=== PATIENT | male | born 1955 | race Caucasian/White ===

== ENCOUNTER → 2018-11-09 | Outpatient (REF) | payer OTHER, MEDICAID ==
[2018-11-09 18:38] LABS: BASO % 0.4 % (0.0-1.0); EOS # 0.2 10^3/uL (0.0-0.50); EOS % 2.2 % (0.0-3.0); HEMATOCRIT 45.4 % (42.0-52.0); HEMOGLOBIN 14.9 g/dl (13.5-17.5); LYMPH # 1.4 10^3/uL (1.5-4.5); LYMPH % 16.7 % (24.0-44.0); MEAN CORPUSCULAR HGB CONC 32.8 g/dl (32.0-36.5); MEAN CORPUSCULAR VOLUME 91.3 fl (80.0-96.0); MONO # 0.8 10^3/uL (0.0-0.8); MONO % 9.3 % (0.0-5.0); NEUTROPHILS # 5.9 10^3/uL (1.8-7.7); NEUTROPHILS % 71.2 % (36.0-66.0); PLATELET COUNT, AUTOMATED 229 10^3/uL (150-450); RED BLOOD COUNT 4.97 10^6/uL (4.30-6.10); WHITE BLOOD COUNT 8.3 10^3/uL (4.0-10.0)
[2018-11-09 18:42] LABS: ALBUMIN 3.5 GM/DL (3.2-5.2); ALT/SGPT 19 U/L (12-78); BILIRUBIN,TOTAL 0.4 MG/DL (0.2-1.0); BLOOD UREA NITROGEN 14 MG/DL (7-18); CALCIUM LEVEL 8.5 MG/DL (8.8-10.2); CARBON DIOXIDE LEVEL 27 MEQ/L (21-32); CHLORIDE LEVEL 107 MEQ/L (98-107); CHOLESTEROL LEVEL 138 MG/DL (<200); CREATININE FOR GFR 0.81 MG/DL (0.70-1.30); GLOMERULAR FILTRATION RATE > 60.0 (>49); GLUCOSE, FASTING 98 MG/DL (70-100); HDL CHOLESTEROL 40 MG/DL (>40); LDL CHOLESTEROL 78 MG/DL (<100); NON-HDL-C 98 MG/DL; POTASSIUM SERUM 3.8 MEQ/L (3.5-5.1); SODIUM LEVEL 141 MEQ/L (136-145); TOTAL PROTEIN 6.6 GM/DL (6.4-8.2); TRIGLYCERIDES LEVEL 101 MG/DL (<150)
== END ==
LOC: M LAB REF 16:58
PROVIDERS: ATTEND Family Medicine Addiction Medicine
DX: R03.0 Elevated blood-pressure reading, without diagnosis of hypertension (principal); M54.5 Low back pain; J43.8 Other emphysema; M25.512 Pain in left shoulder

== ENCOUNTER → 2019-02-16 | Outpatient (CLI) | payer OTHER ==
--- NOTE | 2019-02-16 14:10 | REP ---
REASON: Tobacco abuse. COMPARISON: None. There is evidence of biapical pleural parenchymal scarring. There is a subtle 6 mm sized nodule in the right middle lobe. There is an incidental calcified granuloma in the right middle lobe. Grossly the mediastinum and pulmonary frank are within normal limits. Grossly the imaged upper abdomen and imaged osseous structures are within normal limits. As per the protocol only lung window images were sent to the read station for interpretation. IMPRESSION: 1. 6 mm sized nodule in the right middle lobe. According to the revised Fleischner's Society criteria this represents a category III lesion for which 6 month followup examination is recommended. 2. There is evidence of biapical pleural parenchymal scarring. Electronically Signed by Dre Bell DO 02/16/2019 02:22 P
== END ==
LOC: M RAD 11:15
PROVIDERS: ATTEND Nurse Practitioner Family
DX: Z12.2 Encounter for screening for malignant neoplasm of respiratory organs (principal); Z72.0 Tobacco use; R91.1 Solitary pulmonary nodule

== ENCOUNTER → 2019-07-26 | Outpatient (CLI) | payer OTHER ==
--- NOTE | 2019-07-26 14:09 | PFTRPT ---
Site: [facility], [address] [place] [address], [id number] ID: [id number] Name: GRIFFIN SHARP Visit Date: 07/26/2019 Second ID: [id number] Referring Doctor: Fercho Cristina MD Reviewing Doctor: Fercho Cristina MD Heart Surgeon: Ubaldo BOWEN, LIZZETH Age: 64 : 1955 Sex: Male Race: Height: 73.00 Inches Weight: 152.00 Lbs BSA: 1.91 Order IDs: [id number] Requested Test(s): <RESP-PFT.PFT B/A> Diagnosis: R91.1 test meet the ATS standards for acceptability and repeatability. Pt was given four puffs of albuterol for postbronchodilator. Review Status: Not Reviewed Pre-Bronch Post-Bronch Pred Actual %Pred Actual %Chng SPIROMETRY FVC (L) 5.21 4.17 80 4.23 1 FEV1 (L) 3.92 3.23 82 3.40 5 FEV1/FVC (%) 75 77 103 80 3 FEF 25% (L/sec) 6.95 6.69 96 7.13 6 FEF 50% (L/sec) 3.76 4.41 117 5.31 20 FEF 75% (L/sec) 1.29 0.92 71 1.23 33 FEF 25-75% (L/sec) 3.15 2.90 91 3.64 25 FEF Max (L/sec) 9.74 7.48 76 8.51 13 FIVC (L) 3.17 3.37 6 FIF 50% (L/sec) 4.66 5.90 126 3.27 -44 FIF Max (L/sec) 5.95 3.46 -41 MVV (L/min) 148 93 62 Expiratory Time (sec) 10.68 7.68 -28 Back Extrap Vol (L) 0.13 0.16 22 Time To FEFmax (sec) 0.115 0.111 -3 LUNG VOLUMES SVC (L) 5.16 4.32 83 IC (L) 3.59 2.98 82 ERV (L) 1.57 1.34 85 TGV (L) 4.02 3.36 83 RV (Pleth) (L) 2.45 2.02 82 TLC (Pleth) (L) 7.61 6.34 83 RV/TLC (Pleth) (%) 33 32 96 DIFFUSION DLCOunc (ml/min/mmHg) 29.17 21.86 74 DLCOcor (ml/min/mmHg) 29.17 21.80 74 DL/VA (ml/min/mmHg/L) 3.83 3.73 97 VA (L) 7.61 5.85 76 BHT (sec) 10.47 IVC (L) 4.11 TLC (SB) (L) 6.00 AIRWAYS RESISTANCE Raw (cmH2O/L/s) 1.45 0.91 62 Gaw (L/s/cmH2O) 1.03 1.10 106 sRaw (cmH2O*s) 4.76 3.43 72 sGaw (1/cmH2O*s) 0.20 0.29 145 BLOOD GASES Hgb (gm/dL) 14.7
== END ==
LOC: M CARPUL 13:34
PROVIDERS: ATTEND Internal Medicine Pulmonary Disease
DX: R91.1 Solitary pulmonary nodule (principal)

== ENCOUNTER → 2019-09-14 | Outpatient (CLI) | payer OTHER ==
--- NOTE | 2019-09-14 14:41 | REP ---
REASON: Followup pulmonary nodule. COMPARISON: 02/16/2019, the only prior which showed a 6 mm size nodule in the right middle lobe. Limited evaluation of the mediastinum and pulmonary frank show no evidence of gross mass or adenopathy. There are no pleural or pericardial effusions. Limited evaluation of the imaged upper abdomen shows a near round 2.9 cm sized structure arising from the superior pole of the left kidney and having water density Hounsfield unit readings consistent with a cyst. In the interpolar region f the left kidney anteriorly, there is a partially imaged, at least 4.1 cm sized round appearing lesion. The images portion of which also has near water density Hounsfield unit readings. Bone window technique throughout the exam shows the osseous structures within normal limits. There is an incidental vertebral body hemangioma seen involving T9. Evaluation of the lung alonso shows a 6 mm size nodule seen previously in the right middle lobe to have gotten smaller. Note is again made of stable appearing biapical pleuroparenchymal scarring. There is dependent bilateral subsegmental atelectasis seen in the lung bases. There are no new abnormal nodules, masses, or opacities. IMPRESSION: 1. Less conspicuous nodule seen in the right middle lobe as described above. 2. Other findings as described above. According to the revised Fleischner's Society criteria, yearly CT screening is recommended provided the patient's risk factors remain high. 3. Probable simple renal cysts on the left as described above. Consider further evaluation with ultrasound. 4. Other findings as described above. Electronically Signed by Dre Bell DO 09/14/2019 02:53 P
== END ==
LOC: M RAD 13:10
PROVIDERS: ATTEND Physician Assistant
DX: R63.4 Abnormal weight loss (principal); R91.1 Solitary pulmonary nodule; Z72.0 Tobacco use; J43.8 Other emphysema

== ENCOUNTER → 2019-10-12 | Outpatient (REF) | payer OTHER, MEDICAID ==
[2019-10-12 13:26] LABS: BASO # 0.1 10^3/uL (0.0-0.2); BASO % 0.9 % (0.0-1.0); EOS # 0.2 10^3/uL (0.0-0.5); EOS % 2.6 % (0.0-3.0); HEMATOCRIT 47.6 % (42.0-52.0); HEMOGLOBIN 15.5 g/dl (13.5-17.5); LYMPH # 2.2 10^3/uL (1.5-5.0); LYMPH % 34.2 % (24.0-44.0); MEAN CORPUSCULAR HEMOGLOBIN 29.7 pg (27.0-33.0); MEAN CORPUSCULAR HGB CONC 32.6 g/dl (32.0-36.5); MEAN CORPUSCULAR VOLUME 91.2 fl (80.0-96.0); MONO # 0.7 10^3/uL (0.0-0.8); MONO % 11.4 % (0.0-5.0); NEUTROPHILS # 3.3 10^3/uL (1.5-8.5); NEUTROPHILS % 50.4 % (36.0-66.0); PLATELET COUNT, AUTOMATED 292 10^3/uL (150-450); RED BLOOD COUNT 5.22 10^6/uL (4.30-6.10); WHITE BLOOD COUNT 6.5 10^3/uL (4.0-10.0)
[2019-10-12 13:36] LABS: ALBUMIN 3.8 GM/DL (3.2-5.2); ALT/SGPT 19 U/L (12-78); BILIRUBIN,TOTAL 0.4 MG/DL (0.2-1.0); BLOOD UREA NITROGEN 14 MG/DL (7-18); CALCIUM LEVEL 9.1 MG/DL (8.8-10.2); CARBON DIOXIDE LEVEL 27 MEQ/L (21-32); CHLORIDE LEVEL 103 MEQ/L (98-107); CHOLESTEROL LEVEL 176 MG/DL (<200); CHOLESTEROL RISK RATIO 5.176 (<5); CREATININE FOR GFR 0.86 MG/DL (0.70-1.30); GLOMERULAR FILTRATION RATE > 60.0 (>49); GLUCOSE, FASTING 86 MG/DL (70-100); HDL CHOLESTEROL 34 MG/DL (>40); LDL CHOLESTEROL 114 MG/DL (<100); NON-HDL-C 142 MG/DL; POTASSIUM SERUM 3.9 MEQ/L (3.5-5.1); SODIUM LEVEL 137 MEQ/L (136-145); TOTAL PROTEIN 6.7 GM/DL (6.4-8.2); TRIGLYCERIDES LEVEL 142 MG/DL (<150)
[2019-10-12 13:59] LABS: HEMOGLOBIN A1c 5.8 %
== END ==
LOC: M LAB REF 12:41
PROVIDERS: ATTEND Family Medicine
DX: Z00.01 Encounter for general adult medical examination with abnormal findings (principal)

== ENCOUNTER → 2019-10-19 | Outpatient (CLI) | payer OTHER ==
--- NOTE | 2019-10-19 15:51 | REP ---
RENAL ULTRASOUND: Real-time sonographic evaluation of kidneys performed. Kidneys are normal in size and echotexture, right kidney measuring 10.7 x 6.4 x 4.3 cm and left kidney 10.6 x 7.0 x 6.4 cm. There is no hydronephrosis bilaterally. Visualization of the left kidney is somewhat limited due to bowel gas and body habitus. There are two cysts in the upper pole of the right kidney measuring 1.0 cm and 1.1 cm in diameter. There is a cyst in the upper pole of the left kidney measuring 4.4 x 2.7 x 3.1 cm. There is a cyst in the lower pole of the left kidney 3.8 x 4.0 x 3.7 cm, which contains a thin septation. IMPRESSION: Bilateral renal cysts. Electronically Signed by Brandan Deal MD 10/19/2019 03:55 P
--- NOTE | 2019-10-19 15:54 | REP ---
URINARY BLADDER ULTRASOUND: Real-time sonographic evaluation of urinary bladder performed. Bladder measures 4.5 x 6.5 x 2.1 cm for a total volume of 40 mL. Due to suboptimal distention, evaluation of bladder wall is limited. Ureteral jets are not visualized with Doppler color evaluation. Prostate measures 3.4 x 2.5 x 3.7 cm, total volume 16 mL. There is no postvoid residual. IMPRESSION: Limited evaluation of bladder, which is suboptimally distended with a volume of 40 mL. No gross abnormality. No postvoid residual after voiding. Electronically Signed by Brandan Deal MD 10/19/2019 03:55 P
== END ==
LOC: M RAD 10:28
PROVIDERS: ATTEND Physician Assistant
DX: N28.1 Cyst of kidney, acquired (principal)

== ENCOUNTER → 2019-10-31 | Outpatient (CLI) | payer OTHER ==
[~2019-10-31] MED LIST: E-Z-GAS II EFFERVESCENT PACKET (SODIUM BICARB./CITRIC ACID/SIMETHICONE) As Ordered ONE; E-Z-HD 98% w/w 340GM SUSP BTL As Ordered ONE; E-Z-PAQUE 96% w/w SUSP 176GM BTL As Ordered ONE
--- NOTE | 2019-10-31 16:14 | REP ---
Esophagram The procedure was performed under the direct supervision of Dr. Deal. The images were reviewed with Dr. Deal. A single view PA chest x-ray is submitted as a heading pinner film. There is biapical pleural parenchymal scarring as seen on a previous CT scan dated 09/14/2019. Lungs are otherwise clear. The heart size within normal limits. The superior mediastinal structures are midline. Liquid barium and gas producing granules were given in the erect position as well as liquid barium in the prone oblique positions in order to perform a double contrast esophagram examination. The oral and pharyngeal stages of deglutition are unremarkable. Esophageal transport is prompt and efficient and there is no esophagitis, stricture, mucosal ring or hiatal hernia. Gastroesophageal reflux is not demonstrated on this examination. Impression: Double contrast esophagram examination within normal limits. 0.7 minutes of fluoro time was utilized for this procedure. Electronically Signed by TANIYA Camacho 10/31/2019 03:49 P Electronically Signed by Brandan Deal MD 10/31/2019 04:04 P
== END ==
LOC: M RAD 09:54
PROVIDERS: ATTEND Physician Assistant
DX: R13.12 Dysphagia, oropharyngeal phase (principal); Z72.0 Tobacco use

== ENCOUNTER → 2020-04-09 | Outpatient (REF) | payer OTHER, MEDICAID ==
[2020-04-09 17:21] LABS: BASO # 0.1 10^3/uL (0.0-0.2); BASO % 0.9 % (0.0-1.0); EOS # 0.2 10^3/uL (0.0-0.5); EOS % 3.9 % (0.0-3.0); HEMATOCRIT 47.5 % (42.0-52.0); LYMPH # 1.5 10^3/uL (1.5-5.0); LYMPH % 25.7 % (24.0-44.0); MEAN CORPUSCULAR HGB CONC 31.6 g/dl (32.0-36.5); MEAN CORPUSCULAR VOLUME 91.9 fl (80.0-96.0); MONO # 0.6 10^3/uL (0.0-0.8); MONO % 9.8 % (0.0-5.0); NEUTROPHILS # 3.5 10^3/uL (1.5-8.5); NEUTROPHILS % 59.5 % (36.0-66.0); PLATELET COUNT, AUTOMATED 255 10^3/uL (150-450); RED BLOOD COUNT 5.17 10^6/uL (4.30-6.10); WHITE BLOOD COUNT 5.8 10^3/uL (4.0-10.0)
[2020-04-09 17:23] LABS: BLOOD UREA NITROGEN 18 MG/DL (7-18); CALCIUM LEVEL 9.4 MG/DL (8.8-10.2); CARBON DIOXIDE LEVEL 31 MEQ/L (21-32); CHLORIDE LEVEL 107 MEQ/L (98-107); CREATININE FOR GFR 0.92 MG/DL (0.70-1.30); GLOMERULAR FILTRATION RATE > 60.0 (>49); GLUCOSE, FASTING 87 MG/DL (70-100); MAGNESIUM LEVEL 2.1 MG/DL (1.8-2.4); POTASSIUM SERUM 4.7 MEQ/L (3.5-5.1); SODIUM LEVEL 142 MEQ/L (136-145)
[2020-04-09 17:29] LABS: HEMOGLOBIN A1c 5.3 %
== END ==
LOC: M LAB REF 16:27
PROVIDERS: ATTEND Physician Assistant
DX: R07.9 Chest pain, unspecified (principal); R25.2 Cramp and spasm; Z01.818 Encounter for other preprocedural examination; R73.03 Prediabetes

== ENCOUNTER → 2020-08-12 | Outpatient (REF) | payer OTHER, MEDICAID ==
[2020-08-12 16:47] LABS: HEMOGLOBIN A1c 5.3 %
[2020-08-12 16:57] LABS: ALT/SGPT 23 U/L (12-78); BILIRUBIN,TOTAL 0.3 MG/DL (0.2-1.0); BLOOD UREA NITROGEN 16 MG/DL (7-18); CALCIUM LEVEL 9.1 MG/DL (8.8-10.2); CARBON DIOXIDE LEVEL 30 MEQ/L (21-32); CHLORIDE LEVEL 104 MEQ/L (98-107); CHOLESTEROL LEVEL 132 MG/DL (<200); CHOLESTEROL RISK RATIO 3.069 (<5); CREATININE FOR GFR 0.94 MG/DL (0.70-1.30); GLOMERULAR FILTRATION RATE > 60.0 (>49); GLUCOSE, FASTING 80 MG/DL (70-100); HDL CHOLESTEROL 43 MG/DL (>40); LDL CHOLESTEROL 73 MG/DL (<100); MAGNESIUM LEVEL 2.1 MG/DL (1.8-2.4); NON-HDL-C 89 MG/DL; POTASSIUM SERUM 4.7 MEQ/L (3.5-5.1); SODIUM LEVEL 139 MEQ/L (136-145); TOTAL PROTEIN 6.4 GM/DL (6.4-8.2); TRIGLYCERIDES LEVEL 78 MG/DL (<150)
[2020-08-12 17:13] LABS: TOTAL 25(OH) VITAMIN D 40.1 NG/ML (30.0-100.0)
== END ==
LOC: M LAB REF 15:47
PROVIDERS: ATTEND Physician Assistant
DX: I10 Essential (primary) hypertension (principal); E78.00 Pure hypercholesterolemia, unspecified; E55.9 Vitamin D deficiency, unspecified; R73.03 Prediabetes

== ENCOUNTER → 2020-11-03 | Outpatient (CLI) | payer OTHER ==
--- NOTE | 2020-11-04 06:46 | REP ---
INDICATION: NICOTINE DEPENDENCE COMPARISON: 09/14/2019, 02/16/2019 TECHNIQUE: Axial noncontrast images from the thoracic inlet to the upper abdomen using low-dose lung screening technique (LDCT). FINDINGS: The bilateral lung alonso demonstrate essentially chronic age-related changes including moderate biapical scarring. The small perifissural density inseparable from the right middle lobe (series 201; image 48) represent small scar and appears decreased from prior examination. No acute consolidation, new suspicious nodule, or mass. No pleural effusion. No pneumothorax. Tracheobronchial tree is patent. IMPRESSION: Lung-RADS category 2. No acute suspicious nodule or mass lesion. Management recommendations include annual low-dose CT surveillance. <Electronically signed by Manjit Rausch > 11/04/20 [id number]
== END ==
LOC: M RAD 12:45
PROVIDERS: ATTEND Internal Medicine Pulmonary Disease
DX: Z12.2 Encounter for screening for malignant neoplasm of respiratory organs (principal); F17.210 Nicotine dependence, cigarettes, uncomplicated

== ENCOUNTER → 2021-03-09 | Outpatient (CLI) | payer OTHER ==
--- NOTE | 2021-03-09 12:36 | REP ---
INDICATION: LEG CRAMPS AND SPASMS COMPARISON: None. TECHNIQUE: Real-time sonographic evaluation of the lower extremity arteries bilateral with Doppler FINDINGS: All numeric values represent peak systolic velocities in cm/SEC On the right: The ankle brachial index is 1.1 ICE SCULPTOR: 58.9 biphasic Profunda: 54.1 triphasic SFA proximal: 96.6 biphasic SFA mid: 70.5 triphasic SFA distal: 84.6 triphasic Popliteal: 69.1 triphasic VERONIQUE proximal: 51.3 triphasic Tibioperoneal trunk: 50.0 triphasic GIFT WRAPPER proximal: 48.9 triphasic GIFT WRAPPER distal: 72.6 triphasic VERONIQUE distal: 71.3 triphasic On the left: The ankle brachial index is 1.0 ICE SCULPTOR: 60.0 triphasic Profunda: 51.3 triphasic SFA proximal: 98.9 triphasic SFA Mid: 92.5 triphasic SFA distal: 86.2 triphasic Popliteal: 61.9 triphasic VERONIQUE proximal: 50.5 triphasic Tibioperoneal trunk: 65.1 triphasic GIFT WRAPPER proximal: 75.1 triphasic GIFT WRAPPER distal: 78.7 triphasic VERONIQUE distal: 57.7 triphasic Only a mild amount of plaque was seen bilaterally. IMPRESSION: As above <Electronically signed by Dre Bell > 03/09/21 [id number]
== END ==
LOC: M RAD 10:38
PROVIDERS: ATTEND Physician Assistant
DX: R25.2 Cramp and spasm (principal)

== ENCOUNTER → 2021-05-02 | Outpatient (CLI) | payer OTHER ==
--- NOTE | 2021-05-02 11:24 | REP ---
INDICATION: PAIN IN THORACIC SPINE. COMPARISON: None. TECHNIQUE: Three views FINDINGS: The AP view shows a dextro rotatory curvature centered at L2-3. There is disc space narrowing at L2-3 with marginal osteophytes greatest at the level. The lateral view shows some narrowing at L5-S1. There is retrolisthesis of L 4 on L5 related to facet arthropathy. No compression deformity is noted. Pedicles, spinous and transverse processes are intact. The lower thoracic levels and visualized ribs are intact. Sacral ala, foramina, SI joints and visualized iliac bones unremarkable. IMPRESSION: 1. Lumbar spondylosis and dextro rotatory scoliosis centered at L2-3 with disc space narrowing and sclerosis at that level along with osteophytes. No compression fracture, spondylolysis or destructive lesion. A few mm of retrolisthesis of L4 on L5 air related to facet arthropathy. <Electronically signed by Raza Stanley > 05/02/21 1820
--- NOTE | 2021-05-02 11:27 | REP ---
INDICATION: PAIN IN THORACIC SPINE. COMPARISON: None. TECHNIQUE: Three views FINDINGS: The AP view shows mild dextroconvex curve centered at T6. There is a compensatory levoconvex curve centered at the T10. Paraspinal lines intact aorta unremarkable. Visualized posterior rib articulations and medial clavicles intact lateral view shows no compression deformity in the thoracic spine. A coned lateral view of the cervicothoracic junction shows total shoulder arthroplasty which obscures cervicothoracic junction. Alignment above and below that appears normal. IMPRESSION: 1. Degenerative disc disease and mild S-shaped curvature of the thoracolumbar spine as detailed above. No compression deformity, destructive lesion or other acute bony finding. 2. Incidental note of a total shoulder arthroplasty on the left. <Electronically signed by Raza Stanley > 05/02/21 1129
== END ==
LOC: M RAD 10:33
PROVIDERS: ATTEND Physician Assistant
DX: M47.896 Other spondylosis, lumbar region (principal)

== ENCOUNTER → 2021-10-13 | Outpatient (CLI) | payer OTHER | LOC: M RAD 12:38 | PROVIDERS: ATTEND Physician Assistant | DX: K40.91 Unilateral inguinal hernia, without obstruction or gangrene, recurrent (principal) ==

== ENCOUNTER → 2021-10-29 | Outpatient (REF) | payer OTHER ==
[2021-10-29 18:12] LABS: APPEARANCE, URINE CLOUDY (CLEAR); BACTERIA, URINE AUTO NEGATIVE (NEGATIVE); BILIRUBIN, URINE AUTO NEGATIVE (NEGATIVE); BLOOD, URINE BLOOD NEGATIVE (NEGATIVE); COLOR, URINE AMBER (YELLOW); GLUCOSE, URINE (UA) AUTO NEGATIVE (NEGATIVE); KETONE, URINE AUTO NEGATIVE (NEGATIVE); LEUKOCYTE ESTERASE, URINE AUTO NEGATIVE (NEGATIVE); MUCUS, URINE MODERATE (NEGATIVE); NITRITE, URINE AUTO NEGATIVE (NEGATIVE); PROTEIN, URINE AUTO 1+ mg/dL (NEGATIVE); RBC, URINE AUTO 2 /HPF (0-3); SPECIFIC GRAVITY URINE AUTO 1.012 (1.002-1.035); SQUAMOUS EPITHELIAL CELL UR AU 1 /HPF (0-6); UROBILINOGEN, URINE AUTO 0.2 mg/dL (0.0-2.0); WBC, URINE AUTO 2 /HPF (0-3)
== END ==
LOC: M SMT 16:51
PROVIDERS: ATTEND Nurse Practitioner Women's Health
DX: N53.12 Painful ejaculation (principal)

== ENCOUNTER → 2021-10-31 | Outpatient (CLI) | payer OTHER | LOC: M LAB 10:56 | PROVIDERS: ATTEND Nurse Practitioner Women's Health | DX: Z12.5 Encounter for screening for malignant neoplasm of prostate (principal) ==

== ENCOUNTER → 2022-01-07 | Outpatient (CLI) | payer OTHER | LOC: M RAD 13:31 | PROVIDERS: ATTEND Physician Assistant | DX: R22.32 Localized swelling, mass and lump, left upper limb (principal) ==

== ENCOUNTER → 2022-01-18 | Outpatient (CLI) | payer OTHER | LOC: M EKG 10:30 | PROVIDERS: ATTEND Physician Assistant | DX: I10 Essential (primary) hypertension (principal) ==

== ENCOUNTER → 2022-02-02 | Outpatient (CLI) | payer OTHER | LOC: M RAD 10:28 | PROVIDERS: ATTEND Physician Assistant | DX: F17.210 Nicotine dependence, cigarettes, uncomplicated (principal) ==

== ENCOUNTER → 2022-06-10 | Outpatient (REF) | payer OTHER ==
[2022-06-10 17:22] LABS: HEMATOCRIT 45.5 % (42.0-52.0); HEMOGLOBIN 14.8 g/dl (13.5-17.5); MEAN CORPUSCULAR HEMOGLOBIN 29.7 pg (27.0-33.0); MEAN CORPUSCULAR HGB CONC 32.5 g/dl (32.0-36.5); MEAN CORPUSCULAR VOLUME 91.2 fl (80.0-96.0); PLATELET COUNT, AUTOMATED 264 10^3/uL (150-450); RED BLOOD COUNT 4.99 10^6/uL (4.30-6.10); WHITE BLOOD COUNT 6.7 10^3/uL (4.0-10.0)
[2022-06-10 17:27] LABS: ALBUMIN 3.7 G/DL (3.2-5.2); ALKALINE PHOSPHATASE 86 U/L (46-116); ALT/SGPT 20 U/L (7.0-40); AST/SGOT 15 U/L (<34); BILIRUBIN,TOTAL 0.2 MG/DL (0.3-1.2); BLOOD UREA NITROGEN 13 MG/DL (9-23); CALCIUM LEVEL 9.8 MG/DL (8.3-10.6); CARBON DIOXIDE LEVEL 27 MMOL/L (20-31); CHLORIDE LEVEL 105 MMOL/L (98-107); CREATININE FOR GFR 0.87 MG/DL (0.70-1.30); GLOMERULAR FILTRATION RATE > 60.0 (>49); GLUCOSE, FASTING 81 MG/DL (74-106); POTASSIUM SERUM 4.7 MMOL/L (3.5-5.1); SODIUM LEVEL 140 MMOL/L (136-145); TOTAL PROTEIN 6.6 G/DL (5.7-8.2)
[2022-06-10 17:31] LABS: THYROID STIMULATING HORMONE 3.154 uIU/ML (0.55-4.78)
== END ==
LOC: M LAB REF 16:14
PROVIDERS: ATTEND Physician Assistant
DX: R19.5 Other fecal abnormalities (principal); R68.81 Early satiety; R14.0 Abdominal distension (gaseous)

== ENCOUNTER → 2022-08-13 | Outpatient (CLI) | payer MEDICARE, OTHER ==
[~2022-08-13] MED LIST changes: -E-Z-GAS II EFFERVESCENT PACKET (SODIUM BICARB./CITRIC ACID/SIMETHICONE) As Ordered ONE; -E-Z-HD 98% w/w 340GM SUSP BTL As Ordered ONE; -E-Z-PAQUE 96% w/w SUSP 176GM BTL As Ordered ONE; +GASTROGRAFIN SOLUTION 30ML As Ordered ONE; +ISOVUE-370 76% 100ML VIAL As Ordered ONE
== END ==
LOC: M RAD 10:41
PROVIDERS: ATTEND Physician Assistant
DX: R19.5 Other fecal abnormalities (principal); R63.4 Abnormal weight loss
CPT/HCPCS: 74177; Q9963; Q9967

== ENCOUNTER → 2022-09-21 | Outpatient (CLI) | payer MEDICARE | LOC: M RAD 12:25 | PROVIDERS: ATTEND Internal Medicine Pulmonary Disease | DX: Z12.2 Encounter for screening for malignant neoplasm of respiratory organs (principal); F17.200 Nicotine dependence, unspecified, uncomplicated ==

== ENCOUNTER → 2022-12-01 | Outpatient (REF) | payer MEDICARE, OTHER ==
[2022-12-01 16:52] LABS: ALBUMIN 3.8 G/DL (3.2-5.2); ALKALINE PHOSPHATASE 80 U/L (46-116); ALT/SGPT 19 U/L (7.0-40); AST/SGOT 10 U/L (<34); BILIRUBIN,TOTAL 0.4 MG/DL (0.3-1.2); BLOOD UREA NITROGEN 17 MG/DL (9-23); CALCIUM LEVEL 8.7 MG/DL (8.3-10.6); CARBON DIOXIDE LEVEL 29 MMOL/L (20-31); CHLORIDE LEVEL 105 MMOL/L (98-107); CHOLESTEROL LEVEL 109 MG/DL (<200); CHOLESTEROL RISK RATIO 3.11 (<5); CREATININE FOR GFR 0.95 MG/DL (0.70-1.30); GLOMERULAR FILTRATION RATE > 60.0 (>49); GLUCOSE, FASTING 131 MG/DL (74-106); LDL CHOLESTEROL 57.2 MG/DL (<100); POTASSIUM SERUM 4.2 MMOL/L (3.5-5.1); SODIUM LEVEL 138 MMOL/L (136-145); TRIGLYCERIDES LEVEL 84 MG/DL (<150)
[2022-12-01 16:54] LABS: TOTAL 25(OH) VITAMIN D 41.4 NG/ML (20.0-100.0)
== END ==
LOC: M LAB REF 16:06
PROVIDERS: ATTEND Physician Assistant
DX: E55.9 Vitamin D deficiency, unspecified (principal); I10 Essential (primary) hypertension; Z79.899 Other long term (current) drug therapy

== ENCOUNTER → 2023-08-29 | Outpatient (REF) | payer MEDICARE, OTHER ==
[2023-08-29 19:13] LABS: BLOOD UREA NITROGEN 15 MG/DL (9-23); CALCIUM LEVEL 8.1 MG/DL (8.3-10.6); CARBON DIOXIDE LEVEL 26 MMOL/L (20-31); CHLORIDE LEVEL 108 MMOL/L (98-107); CREATININE FOR GFR 0.75 MG/DL (0.70-1.30); GLOMERULAR FILTRATION RATE > 60.0 (>49); GLUCOSE, FASTING 132 MG/DL (74-106); SODIUM LEVEL 138 MMOL/L (136-145)
== END ==
LOC: M LAB REF 18:07
PROVIDERS: ATTEND Physician Assistant
DX: I10 Essential (primary) hypertension (principal)

== ENCOUNTER → 2023-12-16 | Outpatient (CLI) | payer MEDICARE, OTHER ==
[2023-12-16 13:29] LABS: HEMATOCRIT 46.3 % (42.0-52.0); HEMOGLOBIN 15.5 g/dl (13.5-17.5); MEAN CORPUSCULAR HEMOGLOBIN 30.7 pg (27.0-33.0); MEAN CORPUSCULAR HGB CONC 33.5 g/dl (32.0-36.5); MEAN CORPUSCULAR VOLUME 91.7 fl (80.0-96.0); PLATELET COUNT, AUTOMATED 282 10^3/uL (150-450); RED BLOOD COUNT 5.05 10^6/uL (4.30-6.10); WHITE BLOOD COUNT 5.5 10^3/uL (4.0-10.0)
[2023-12-16 13:32] LABS: ALBUMIN 3.7 G/DL (3.2-5.2); ALKALINE PHOSPHATASE 78 U/L (46-116); ALT/SGPT 16 U/L (7.0-40); AST/SGOT 9 U/L (<34); BILIRUBIN,TOTAL 0.4 MG/DL (0.3-1.2); BLOOD UREA NITROGEN 18 MG/DL (9-23); CALCIUM LEVEL 9.4 MG/DL (8.3-10.6); CARBON DIOXIDE LEVEL 25 MMOL/L (20-31); CHLORIDE LEVEL 109 MMOL/L (98-107); CHOLESTEROL LEVEL 134 MG/DL (<200); CHOLESTEROL RISK RATIO 3.86 (<5); CREATININE FOR GFR 0.89 MG/DL (0.70-1.30); GLOMERULAR FILTRATION RATE > 60.0 (>49); GLUCOSE, FASTING 107 MG/DL (74-106); HDL CHOLESTEROL 34.7 MG/DL (>40); LDL CHOLESTEROL 78.1 MG/DL (<100); NON-HDL-C 99.3 MG/DL; POTASSIUM SERUM 4.3 MMOL/L (3.5-5.1); SODIUM LEVEL 140 MMOL/L (136-145); TRIGLYCERIDES LEVEL 106 MG/DL (<150)
== END ==
LOC: M RAD 12:09
PROVIDERS: ATTEND Physician Assistant
DX: R91.1 Solitary pulmonary nodule (principal); F17.210 Nicotine dependence, cigarettes, uncomplicated; I10 Essential (primary) hypertension

== ENCOUNTER → 2024-01-12 | Outpatient (REF) | payer MEDICARE, MEDICAID ==
[2024-01-12 18:09] LABS: HEMOGLOBIN A1c 5.1 % (4.0-6.0)
== END ==
LOC: M LAB REF 16:16
PROVIDERS: ATTEND Physician Assistant
DX: R73.01 Impaired fasting glucose (principal)

== ENCOUNTER → 2024-01-20 | Outpatient (CLI) | payer MEDICARE, MEDICAID | LOC: M RAD 10:52 | PROVIDERS: ATTEND Physician Assistant | DX: M25.552 Pain in left hip (principal); M25.551 Pain in right hip ==

== ENCOUNTER → 2024-12-26 | Outpatient (CLI) | payer MEDICARE | LOC: M SOG 06:59 | PROVIDERS: ATTEND Physician Assistant | DX: Z53.9 Procedure and treatment not carried out, unspecified reason (principal) ==

== ENCOUNTER → 2025-01-10 | Outpatient (CLI) | payer MEDICARE | LOC: M SOG 07:22 | PROVIDERS: ATTEND Physician Assistant | DX: Z53.9 Procedure and treatment not carried out, unspecified reason (principal) ==

== ENCOUNTER → 2025-01-11 | Outpatient (CLI) | payer MEDICARE | LOC: M SOG 06:55 | PROVIDERS: ATTEND Physician Assistant | DX: M25.551 Pain in right hip (principal); M25.552 Pain in left hip ==

== ENCOUNTER → 2025-02-11 | Outpatient (CLI) | payer MEDICARE ==
[~2025-02-11] MED LIST changes: -GASTROGRAFIN SOLUTION 30ML As Ordered ONE; +ISOVUE-300 61% 100 ML VIAL As Ordered ONE; -ISOVUE-370 76% 100ML VIAL As Ordered ONE; +methylPREDNISolone SUSP 40 MG/ML 1 ML VIAL As Ordered ONE
== END ==
LOC: M RAD 09:40
PROVIDERS: ATTEND Physician Assistant
DX: M25.552 Pain in left hip (principal)
CPT/HCPCS: 20610; 77002; J0665; J1010; Q9967

== ENCOUNTER → 2025-02-20 | Outpatient (CLI) | payer MEDICARE | LOC: M SOG 06:56 | PROVIDERS: ATTEND Neuromusculoskeletal Medicine, Sports Medicine | DX: M25.512 Pain in left shoulder (principal) ==